=== PATIENT | male | born 1995 | race Caucasian/White ===

== ENCOUNTER 2017-02-05 09:01 | Emergency (ER) | payer OTHER ==
[~2017-02-05] VITALS: Ht 188 cm; Wt 74.0 kg
[~2017-02-05 09:01] MED LIST: HMLI SC; INSDGI SC
[2017-02-05 09:12] VITALS: Ht 188 cm; Wt 74.0 kg
[2017-02-05 09:28] VITALS: O2SAT 98
[2017-02-05] MEDS ORDERED: INSDGIPEN SQ (09:30)
[2017-02-05] MEDS ORDERED: INSU100I2 SQ (09:30)
[2017-02-05] MEDS ORDERED: MECLIZINE HCL 25 MG TAB PO STA (09:42)
[2017-02-05] MEDS ORDERED: SODIUM CHLORIDE 0.9% 1000ML 1,000 ML IV STA (09:42)
[2017-02-05 09:54] LABS: BASO % 1.5 %; BASO ABS # 0.08 K/uL (0-0.2); COMPLETE YES; EOS % 2.9 %; HEMATOCRIT 43.9 % (42-52); IG% 0.2 %; LYMPH % 36.2 %; MEAN CELL VOLUME 89.2 fL (80-100); MEAN CORPUSCULAR HEMOGLOBIN 30.1 pg (25-34); MEAN CORPUSCULAR HGB CONC 33.7 g/dl (32-36); MEAN PLATELET VOLUME 9.7 fL (7.4-10.4); NEUT % 48.2 %; PLATELET COUNT 263 K/uL (130-400); RED BLOOD COUNT 4.92 M/uL (4.7-6.1); WHITE BLOOD COUNT 5.25 K/uL (4.8-10.8)
[2017-02-05 10:01] LABS: BUN/CREATININE RATIO 13.5 (10-20); CALCIUM 8.5 mg/dl (8.5-10.1); CREATININE 0.83 mg/dl (0.60-1.40); POTASSIUM 3.7 mmol/L (3.5-5.1)
--- NOTE | 2017-02-05 11:35 | DIAGNOSTIC IMAGING REPORT ---
ORBITS FOR MRI HISTORY: 21 years-old Male R/O FOREIGN BODY FOR MRI history of metal removal from both eyes. Clearance for MRI. COMPARISON: None available TECHNIQUE: 3 views of the orbits FINDINGS: No opaque foreign body identified. No acute fracture or dislocation. Paranasal sinuses are generally clear. IMPRESSION: No opaque foreign body or fracture. The above report was generated using voice recognition software. It may contain grammatical, syntax or spelling errors. Electronically signed by: Jose Angel Mcginnis M.D. 02/05/2017 11:34 AM Dictated Date/Time: 02/05/2017 11:33 AM
--- NOTE | 2017-02-05 13:02 | DIAGNOSTIC IMAGING REPORT ---
NECK MRA HISTORY: Vertigo. eval for vertebral artery dissection TECHNIQUE: Ocky-io-okmbyy and gadolinium-enhanced MRA of the neck was performed both before and after the intravenous administration of contrast. All measurements were calculated based on NASCET criteria. COMPARISON STUDY: None. FINDINGS: The aortic arch and proximal great vessels are widely patent. There is no significant stenosis, occlusion, or dissection identified within the bilateral common carotid, internal carotid, or vertebral arteries. IMPRESSION: No significant stenosis, occlusion, or dissection identified within the carotid or vertebral arteries. Electronically signed by: Mega Flaherty M.D. 02/05/2017 1:01 PM Dictated Date/Time: 02/05/2017 12:57 PM
--- NOTE | 2017-02-05 13:09 | DIAGNOSTIC IMAGING REPORT ---
MRI OF THE BRAIN WITHOUT AND WITH IV CONTRAST CLINICAL HISTORY: Vertigo. Ataxia. COMPARISON STUDY: No previous studies for comparison. TECHNIQUE: Utilizing a 1.5 Ellie magnet and dedicated coil, multiplanar, multiecho imaging of the brain was performed pre and postcontrast administration. IV administration of 7.4 mL of Gadavist contrast was uneventful. FINDINGS: There are no areas of restricted diffusion to suggest acute infarct. No acute intracranial hemorrhage, midline shift or mass effect is present. Brain volume is normal. Ventricular system is normal. Basilar cisterns are patent. There are no extra-axial collections. Flow-voids for the major intracranial vessels are present. There is no intracranial mass or pathologic enhancement. Note is made of multiple small white matter T2 hyperintense supratentorial foci, predominantly subcortical distribution. The largest is a 1 cm left frontal lobe subcortical focus shown on coronal FLAIR image 15 of 28. These are nonspecific. No associated parenchymal enhancement is present. Calvarial signal is normal. Orbits and sinuses are unremarkable. IMPRESSION: 1. No evidence of acute infarction. No acute intracranial hemorrhage. 2. Multiple small white matter T2 hyperintense foci, predominantly subcortical in distribution without associated enhancement. These foci are nonspecific and of uncertain clinical significance. Differential considerations include a demyelinating process, possibly remote. The appearance is not typical for multiple sclerosis although this is within the differential. In addition, Lyme disease, ADEM and vasculitis could have this appearance. Given the clinical history, these findings may be incidental. No infratentorial foci. Electronically signed by: Abdiel Mcintosh M.D. 02/05/2017 1:07 PM Dictated Date/Time: 02/05/2017 12:57 PM
[2017-02-05] MEDS ORDERED: MECL1TAB42 PO (13:21)
[2017-02-05 13:50] VITALS: BP 111/63; PULSE 62; TEMP 36.5; O2SAT 100
--- NOTE | 2017-02-05 17:50 | EMERGENCY ROOM VISIT NOTE ---
History Report prepared by Tanisha: Ninoska Hagen Under the Supervision of: Dr. Tex Oliveira M.D. First contact with patient: 09:33 Chief Complaint: VERTIGO Stated Complaint: VERTIGO Nursing Triage Summary: pt reports I had vertigo befor feels like I have it again, pt reports sx started at 0830 this am. has hx of vertigo has not had for a couple years, had med that in jun took for the vertigo started to feel better then started to vomit. pt reports sx worsens when changing positions History of Present Illness The patient is a 21 year old male who presents to the Emergency Room with complaints of constant vertigo for the past hour. His symptoms started around 8: 30am today. The patient is experiencing dizziness that is worse with opening his eyes and movement. He has a slight left-sided headache. The patient notes nausea and vomiting. He has a history of vertigo in 2014 and was treated with meclizine. His symptoms resolved after a few days. The patient states that this feels exactly like his previous vertigo. He denies fever, numbness, weakness, ringing in his ears, hearing loss, and trouble with his speech or swallowing. He took an meclizine [employer] but vomited it up. 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 Review of Systems See HPI for pertinent positives & negatives. A total of 10 systems reviewed and were otherwise negative. Past Medical & Surgical Medical Problems: (1) Diabetes mellitus type 1 Family History Patient reports no known family medical history. Social History Smoking Status: Never Smoker Alcohol Use: none Drug Use: none Marital Status: single Housing Status: lives with family Occupation Status: student Current/Historical Medications Scheduled Insulin Glargine (Lantus Solostar), 34 UNITS SQ HS Insulin Lispro (Human) (Humalog Kwikpen), 1 DOSE SQ WM Scheduled PRN Meclizine Hcl (Meclizine Hcl), 1 TAB PO Q8 PRN for vertigo Allergies Coded Allergies: No Known Allergies (Unverified , 02/05/17) Physical Exam Vital Signs Date Time Temp Pulse Resp B/P (MAP) Pulse Ox O2 Delivery O2 Flow Rate FiO2 02/05/17 13:50 36.5 62 18 111/63 100 02/05/17 12:50 60 18 110/76 100 Room Air 02/05/17 11:16 58 18 129/70 100 Room Air 02/05/17 09:47 73 18 115/72 100 Room Air 02/05/17 09:28 98 Room Air 02/05/17 09:19 63 02/05/17 09:12 36.5 81 18 124/77 99 Room Air Physical Exam Constitutional: Vital signs reviewed. Eyes: Pupils are equal round reactive to light. Conjunctiva are noninjected. ENT: Pharynx is clear without erythema or exudate. Mucous membranes are moist. Neck supple without meningeal signs. Respiratory: Clear to auscultation bilaterally. Breath sounds are equal bilaterally. Cardiovascular: Regular rate and rhythm. No rubs or gallops. GI: Soft, nondistended and nontender. Bowel sounds are present. Musculoskeletal: No peripheral edema. No lower extremity tenderness. Integumentary: No cyanosis. Neurological: The patient is awake and alert. Cranial nerves II-XII are intact. Motor is 5 out of 5 all extremities. Sensation is intact to light touch all extremities. Normal speech. No pronator drift. No limb ataxia. No dysdiadochokinesis, negative test of skew, positive head impulse testing. left lateral nystagmus, no vertical or rotatory nystagmus. Psychiatric: Normal affect. Medical Decision & Procedures ER Provider Diagnostic Interpretation: Radiology results as stated below per my review and the radiologist's interpretation: NECK MRA HISTORY: Vertigo. eval for vertebral artery dissection TECHNIQUE: [id number] and gadolinium-enhanced MRA of the neck was performed both before and after the intravenous administration of contrast. All measurements were calculated based on NASCET criteria. COMPARISON STUDY: None. FINDINGS: The aortic arch and proximal great vessels are widely patent. There is no significant stenosis, occlusion, or dissection identified within the bilateral common carotid, internal carotid, or vertebral arteries. IMPRESSION: No significant stenosis, occlusion, or dissection identified within the carotid or vertebral arteries. Electronically signed by: Mega Flaherty M.D. 02/05/2017 1:01 PM Dictated Date/Time: 02/05/2017 12:57 PM MRI OF THE BRAIN WITHOUT AND WITH IV CONTRAST CLINICAL HISTORY: Vertigo. Ataxia. COMPARISON STUDY: No previous studies for comparison. TECHNIQUE: Utilizing a 1.5 Ellie magnet and dedicated coil, multiplanar, multiecho imaging of the brain was performed pre and postcontrast administration. IV administration of 7.4 mL of Gadavist contrast was uneventful. FINDINGS: There are no areas of restricted diffusion to suggest acute infarct. No acute intracranial hemorrhage, midline shift or mass effect is present. Brain volume is normal. Ventricular system is normal. Basilar cisterns are patent. There are no extra-axial collections. Flow-voids for the major intracranial vessels are present. There is no intracranial mass or pathologic enhancement. Note is made of multiple small white matter T2 hyperintense supratentorial foci, predominantly subcortical distribution. The largest is a 1 cm left frontal lobe subcortical focus shown on coronal FLAIR image 15 of 28. These are nonspecific. No associated parenchymal enhancement is present. Calvarial signal is normal. Orbits and sinuses are unremarkable. IMPRESSION: 1. No evidence of acute infarction. No acute intracranial hemorrhage. 2. Multiple small white matter T2 hyperintense foci, predominantly subcortical in distribution without associated enhancement. These foci are nonspecific and of uncertain clinical significance. Differential considerations include a demyelinating process, possibly remote. The appearance is not typical for multiple sclerosis although this is within the differential. In addition, Lyme disease, ADEM and vasculitis could have this appearance. Given the clinical history, these findings may be incidental. No infratentorial foci. Electronically signed by: Abdiel Mcintosh M.D. 02/05/2017 1:07 PM Dictated Date/Time: 02/05/2017 12:57 PM ORBITS FOR MRI HISTORY: 21 years-old Male R/O FOREIGN BODY FOR MRI history of metal removal from both eyes. Clearance for MRI. COMPARISON: None available TECHNIQUE: 3 views of the orbits FINDINGS: No opaque foreign body identified. No acute fracture or dislocation. Paranasal sinuses are generally clear. IMPRESSION: No opaque foreign body or fracture. The above report was generated using voice recognition software. It may contain grammatical, syntax or spelling errors. Electronically signed by: Jose Angel Mcginnis M.D. 02/05/2017 11:34 AM Dictated Date/Time: 02/05/2017 11:33 AM Laboratory Results 02/05/17 09:20 Red Blood Count 4.92, Mean Corpuscular Volume 89.2, Mean Corpuscular Hemoglobin 30.1, Mean Corpuscular Hemoglobin Concent 33.7, Mean Platelet Volume 9.7, Neutrophils (%) (Auto) 48.2, Lymphocytes (%) (Auto) 36.2, Monocytes (%) (Auto) 11.0, Eosinophils (%) (Auto) 2.9, Basophils (%) (Auto) 1.5, Neutrophils # (Auto ) 2.53, Lymphocytes # (Auto) 1.90, Monocytes # (Auto) 0.58, Eosinophils # (Auto ) 0.15, Basophils # (Auto) 0.08 02/05/17 09:20 Test 02/05/17 09:20 02/05/17 11:19 White Blood Count 5.25 K/uL (4.8-10.8) Red Blood Count 4.92 M/uL (4.7-6.1) Hemoglobin 14.8 g/dL (14.0-18.0) Hematocrit 43.9 % (42-52) Mean Corpuscular Volume 89.2 fL (80-100) Mean Corpuscular Hemoglobin 30.1 pg (25-34) Mean Corpuscular Hemoglobin Concent 33.7 g/dl (32-36) Platelet Count 263 K/uL (130-400) Mean Platelet Volume 9.7 fL (7.4-10.4) Neutrophils (%) (Auto) 48.2 % Lymphocytes (%) (Auto) 36.2 % Monocytes (%) (Auto) 11.0 % Eosinophils (%) (Auto) 2.9 % Basophils (%) (Auto) 1.5 % Neutrophils # (Auto) 2.53 K/uL (1.4-6.5) Lymphocytes # (Auto) 1.90 K/uL (1.2-3.4) Monocytes # (Auto) 0.58 K/uL (0.11-0.59) Eosinophils # (Auto) 0.15 K/uL (0-0.5) Basophils # (Auto) 0.08 K/uL (0-0.2) RDW Standard Deviation 39.5 fL (36.4-46.3) RDW Coefficient of Variation 12.3 % (11.5-14.5) Immature Granulocyte % (Auto) 0.2 % Immature Granulocyte # (Auto) 0.01 K/uL (0.00-0.02) Anion Gap 4.0 mmol/L (3-11) Est Creatinine Clear Calc Drug Dose 149.8 ml/min Estimated GFR () 147.8 Estimated GFR (Non- 127.6 BUN/Creatinine Ratio 13.5 (10-20) Calcium Level 8.5 mg/dl (8.5-10.1) Bedside Glucose 177 mg/dl (70-99) Laboratory results as reviewed by me. Medications Administered Medications (Trade) Dose Ordered Sig/Tripp Route Start Time Stop Time Status Last Admin Dose Admin Meclizine HCl (Antivert Tab) 25 mg NOW STAT PO 02/05/17 09:42 02/05/17 09:43 DC 02/05/17 09:46 25 MG Sodium Chloride 1,000 ml @ 999 mls/hr Q1H1M STAT IV 02/05/17 09:42 02/05/17 10:42 DC 02/05/17 09:45 999 MLS/HR ED Course 0933: The patient was evaluated in room A10. A complete history and physical exam was performed. 0942: NSS 1000 ml @ 999 mls/hr IV, Meclizine HCl 25 mg PO 1043: I reevaluated the patient at this time. His vertigo is virtually gone and his nystagmus has improved, but he had significant difficulty walking despite his lack of vertigo. We will proceed with an MRI. 1319: I reassessed the patient at this time. He is feeling better and resting comfortably. I discussed the results and treatment plan with patient and his mother. I answered all pertaining questions that they had. They expressed understanding and verbalized agreement. The patient will be discharged home. Medical Decision This is a 21-year-old male who presents with vertigo. Differential diagnosis includes benign positional vertigo, labyrinthitis, Mnire's disease, intracranial mass, intracranial hemorrhage. I did perform a limited focused review of portions of the patient's old chart on the electronic medical record. The patient was seen for vertigo in 2014 and treated with meclizine. I did evaluate the patient as noted above. He is presenting with sudden onset of vertigo. His symptoms seem to be peripheral based on his examination. He had a negative test of skew and positive head and pulse testing. He has lateral nystagmus without rotatory or vertical nystagmus. IV access was established. I did treat the patient with normal saline IV. He was also given meclizine 25 mg. The patient was placed on a continuous administration internship. I did order and review the patient's blood work as noted in the electronic medical record. He has mild hyperglycemia. He is diabetic. I did reassess the patient. He states he is feeling much better. His vertigo is significantly improved and his nystagmus is also improved. I did try to ambulate the patient but he was extremely unsteady despite not having vertigo. I did explain that this could be simply from the medication but given the symptoms I did decide to work him up further. I did order an MRA of the neck and MRI combo of the brain. I did review the images myself as well as the radiology report as described above. The MRI and MRA were unremarkable. I did reassess the patient. He feels well at this time. I did discuss the test results with him and his mother. He was discharged in good condition and given return instructions as outlined below. Medication Reconcilliation Current Medication List: was personally reviewed by me Blood Pressure Screening Patient's blood pressure: Elevated blood pressure Blood pressure disposition: Elevated BP felt to be situational Impression Primary Impression: Vertigo Additional Impression: Hyperglycemia Scribe Attestation The scribe's documentation has been prepared under my direct and personally reviewed by me in its entirety. I confirm that the note above accurately reflects all work, treatment, procedures, and medical decision making performed by me. Departure Information Dispostion Home / Self-Care Prescriptions Meclizine Hcl (MECLIZINE HCL) 25 Mg Tab 1 TAB PO Q8 Y for vertigo, #20 TAB Prov: Tex Oliveira M.D. 02/05/17 Referrals No Doctor, Assigned (PCP) Forms HOME CARE DOCUMENTATION FORM, IMPORTANT VISIT INFORMATION, WORK / SCHOOL INSTRUCTIONS Patient Instructions ED BPV Vertigo, My [facility] Additional Instructions You have been examined and treated today on an emergency basis only. This is not a substitute for, or an effort to provide, complete comprehensive medical care. It is impossible to recognize and treat all injuries or illnesses in a single emergency department visit. It is therefore important that you follow up closely with your physician. Call as soon as possible for an appointment. Talk to your doctor about your MRI results. Return for worsening symptoms or if you develop fever, vomiting, numbness or weakness on one side of your body, difficulty with your speech or swallowing, or any other concerning symptoms. Problem Qualifiers
== END 2017-02-05 13:45 | disposition home or self-care (01) ==
LOC: C.EDB 09:02 → C.EDA 13:45
DX: R42 Dizziness and giddiness (principal); R73.9 Hyperglycemia, unspecified; R27.0 Ataxia, unspecified

== ENCOUNTER 2021-03-04 19:28 | Inpatient (IN) ==
[2021-03-04] MEDS ORDERED: ceFAZolin 2000MG 2,000 MG/15 ML SYR IV STA (19:36)
[2021-03-04] MEDS ORDERED: HYDROmorphone INJ 0.5 MG/0.5 ML SYR IV STA ×2 (19:37→20:07)
[2021-03-04] MEDS ORDERED: ONDANSETRON INJ 2 MG/ML 2 ML VIAL IV STA (19:37)
[2021-03-04] MEDS ORDERED: SODIUM CHLORIDE 0.9% 1000ML 1,000 ML IV SCH (19:45)
[2021-03-04 19:56] LABS: Basophils # (auto) 0.05 K/uL (0-0.2); Basophils % (auto) 0.3 %; Eosinophils # (auto) 0.07 K/uL (0-0.5); Eosinophils % (auto) 0.4 %; Hematocrit (blood only) 43.6 % (42-52); Immature Granulocytes # (auto) 0.04 K/uL (0.00-0.02); Immature Granulocytes % (auto) 0.2 %; Lymphocytes # (auto) 1.89 K/uL (1.2-3.4); Lymphocytes % (auto) 10.7 %; Mean Corpuscular Hemoglobin 31.8 pg (25-34); Mean Corpuscular Hgb Conc 34.4 g/dL (32-36); Mean Corpuscular Volume 92.4 fL (80-100); Mean Platelet Volume 9.3 fL (7.4-10.4); Monocytes # (auto) 1.32 K/uL (0.11-0.59); Monocytes % (auto) 7.5 %; Neutrophils # (auto) 14.26 K/uL (1.4-6.5); Neutrophils % (auto) 80.9 %; Platelet Count 307 K/uL (130-400); RDW Coefficient of Variation 12.2 % (11.5-14.5); RDW Standard Deviation 41.4 fL (36.4-46.3); Red Blood Count 4.72 M/uL (4.7-6.1); White Blood Count 17.63 K/uL (4.8-10.8)
--- NOTE | 2021-03-04 20:11 | XRay Report ---
XR tibia fibula RT 2V CLINICAL HISTORY: trauma Comparison: None available at the time of this dictation. TECHNIQUE: 2 radiographic views of the right leg were obtained. FINDINGS: There is a spiral fracture of the distal tibial diaphysis and a comminuted fracture of the fibular di aphysis. There is apex anterior angulation. Visualized portions of the knee and ankle joint are unrem arkable. Soft tissue swelling seen about the fracture site. IMPRESSION: Displaced fractures of the tibia and fibula with associated soft tissue swelling.. ACT 112: Negative or not required by law. Electronically signed by: Devan Ruano M.D. 03/04/2021 8:10 PM
[2021-03-04 20:12] LABS: Albumin Level 3.7 gm/dl (3.4-5.0); BUN Creatinine Ratio 12.4 (10-20); Calcium 9.2 mg/dl (8.5-10.1); Creatinine Clr Calc Pharmacy 124.8 ml/min; Est GFR (African American) 116.7 ml/min; Est GFR (Non-African American) 100.7 ml/min; Potassium 3.7 mmol/L (3.5-5.1)
[2021-03-04] MEDS ORDERED: metroNIDAZOLE 500 MG/100 ML BAG IV STA (20:12)
--- NOTE | 2021-03-04 20:14 | XRay Report ---
RIGHT FOOT 2 VIEWS HISTORY: Right foot pain. trauma COMPARISON: None. FINDINGS: There is no fracture or dislocation. Soft tissues are unremarkable. No radiopaque foreign b odies. IMPRESSION: No fractures within the right foot. ACT 112: Negative or not required by law. Electronically signed by: Mega Flaherty M.D. 03/04/2021 8:13 PM
[2021-03-04 20:15] LABS: Bilirubin,Total 0.4 mg/dl (0.2-1); Globulin 3.7 gm/dl (2.5-4.0); Total Protein 7.4 gm/dl (6.4-8.2)
--- NOTE | 2021-03-04 20:16 | XRay Report ---
XR chest 1V portable HISTORY: trauma COMPARISON: None. FINDINGS: The lungs are clear. Cardiac silhouette is normal in size. No pleural effusions. No pneumot horax. Mild dextroscoliosis of the thoracic spine. IMPRESSION: No acute process. ACT 112: Negative or not required by law. Electronically signed by: Mega Flaherty M.D. 03/04/2021 8:15 PM
--- NOTE | 2021-03-04 20:25 | XRay Report ---
XR tibia fibula RT 2V CLINICAL HISTORY: post reduction Comparison: Comparison is made to tibia-fibula radiographs 03/04/2021 TECHNIQUE: 2 radiographic views of the right leg were obtained. FINDINGS: The leg is been placed in a cast limiting fine bony detail. There is interval partial reduction of th e tibial and fibular fractures with remaining apex anterior angulation and less than one shaft width displacement. Joint spaces are well-preserved. Soft tissue swelling is seen about the leg. IMPRESSION: Interval casting with residual mild displacement and angulation of the tibial and fibular fractures. ACT 112: Negative or not required by law. Electronically signed by: Devan Ruano M.D. 03/04/2021 8:23 PM
[2021-03-04] MEDS: HYDROmorphone INJ 0.5 MG/0.5 ML SYR IV PRN (21:08)
[2021-03-04 21:10] LABS: Appearance Urine Clear (Clear); Bilirubin Urine Negative (Negative); Blood Urine Negative (Negative); Color Urine Yellow; Glucose Urine UA 2+ (Negative); Ketones Urine Trace (Negative); Leukocyte Esterase Urine Negative (Negative); Nitrite Urine Negative (Negative); Protein Urine Negative (Negative); Specific Gravity Urine 1.013 (1.000-1.030); Urobilinogen Urine Negative (Negative); pH Urine 5.5 (4.5-7.5)
--- NOTE | 2021-03-04 21:17 | History & Physical Report ---
Date of Service March 04, 2021 Assessment & Plan (1) Open tibial fracture: Patient is received IV antibiotics in the ER. He has been splinted in a splint. Or can take emergent to the operating room doing irrigation debridement and then followed this by an IM nailing of his tibia fracture. The risks about this procedure explained the patient in depth include but not limited to DVT PE infection neurological injury vascular bleeding problems nonunion malunion infection compartment syndrome etc. The patient understands and desires to proceed informed consent is obtained. I did tell him with his diabetes his risk of infection is increased but will be the best we can to avoid that. We will probably keep 24 hours afterwards for IV antibiotics. Also monitor his compartments over time. Begin DVT prophylaxis include teds SCDs and baby aspirin twice a day. History of Present Illness Chief Complaint: . Right leg injury. Primary Care Provider: Nancy Terrazas DO . Patient is a 25-year-old wood who sustained injury to his right leg earlier today. He was apparently stacking tires up on a shelf when the tires fell back and landed on his right leg. Acute onset of pain and deformity. He was brought to emergency room where x-rays revealed a open wound and a tib-fib fracture. Were consulted for evaluation. No other injuries. No pre-existing pain in this leg. Last ate at about 5:00. He was given Ancef in the ER along with some Flagyl. He is a type I diabetic and on insulin. Allergies Allergy/AdvReac Type Severity Reaction Status Date / Time No Known Allergies Allergy Unverified 03/04/21 20:23 Home Medications Medication Instructions Recorded Confirmed Type insulin aspart U-100 100 unit/mL 0 unit SUBCUT ACHS 03/04/21 03/04/21 History (3 mL) subcutaneous pen (Novolog Flexpen U-100 Insulin aspart) insulin glargine 100 unit/mL (3 33 unit SUBCUT DAILY 03/04/21 03/04/21 History mL) subcutaneous pen (Basaglar KwikPen U-100 Insulin) Past Med/Surg History Medical History (Updated 03/04/21 @ 21:16 by Jarod Ramirez MD) Open tibial fracture Social History Smoking Status: Never smoker Tobacco Type: Smokeless Tobacco (Dip or Chew) Feels Safe at Home: Yes Review of Systems All systems reviewed & are unremarkable except as noted in HPI & below. Physical Exam . Physical examination is a pleasant healthy 25-year-old male who looks to be in good health. HEENT exam is benign. Neck supple no lymphadenopathy lungs clear auscultation. Heart has a regular rate and rhythm. Abdomen soft nontender nondistended extremities grossly neuro vas intact up as follows. Examination of the right leg reveals the splint to be in place. There is some slight deformity to his leg with the apex anterior and medial apex angulation. He can flex extend his toes slightly. He is got brisk refill. Results & Data Results & Data Laboratory Results . Diagnostic Findings . X-rays of the right tib-fib reveal a mid to distal third tibia fracture oblique in fashion with a fairly comminuted fibula fracture. Marked displacement. PG Care Time/CCT Total # of Minutes Spent Total Time Spent with Patient: Total time spent is greater than 50% in coordination of care (as documented) at patient's floor/unit and/or counseling patient: Coding Level of Care Code 00165 Initial Inpt Care Lvl 3 Diagnoses Open tibial fracture S82.209B
[2021-03-04] MEDS ORDERED: EPINEPHrine INJ 1 MG/ML AMP ONE (21:30)
[2021-03-04] MEDS ORDERED: VANCOMYCIN HCL 1000MG/20ML VIAL ONE (21:31)
[2021-03-04] MEDS ORDERED: ePHEDrine sulfate 50 MG/ML AMP IV PRN (21:56)
[2021-03-04] MEDS ORDERED: ATROPINE SULFATE 0.1 MG/ML 10ML SYR IV PRN (21:56)
[2021-03-04] MEDS ORDERED: ONDANSETRON INJ 2 MG/ML 2 ML VIAL IV PRN (21:56)
--- NOTE | 2021-03-04 21:56 | Anesthesiology Consultation ---
Date of Service March 04, 2021 Assessment & Plan Chart Review Chart Review: Acceptable Risk for Surgery and Patient NOT seen in Pre Admission Testing Consults Requested none ASA ASA2E Proposed Anesthesia Anesthesia Type: General Risk / Benefits Reviewed With: PT / POA / Parent / Guardian, Accepts Plan and Informed Consent Obtained History Surgery Operation Date: 03/04/21 21:00 Proposed Procedures p Intramedullary Nail Tibia(Right) - Jarod Ramirez MD Height/Weight Height: 6 ft 1 in Weight: 84 kg Allergies Allergy/AdvReac Type Severity Reaction Status Date / Time No Known Allergies Allergy Unverified 03/04/21 20:23 Medications Home Medications Medication Instructions Recorded Confirmed Last Taken insulin aspart U-100 100 unit/mL 0 unit SUBCUT ACHS 03/04/21 03/04/21 Unknown (3 mL) subcutaneous pen (Novolog Flexpen U-100 Insulin aspart) insulin glargine 100 unit/mL (3 33 unit SUBCUT DAILY 03/04/21 03/04/21 Unknown mL) subcutaneous pen (Basaglar KwikPen U-100 Insulin) Active Medications Generic Name Dose Route Start Last Admin Trade Name Freq PRN Reason Stop Dose Admin Hydromorphone HCl 0.5 mg 03/04/21 21:04 03/04/21 21:08 Hydromorphone Inj 0.5 Mg/0.5 Ml Syr IV 03/18/21 21:03 0.5 mg Q30M PRN Administration Pain NPO Date Last Intake of Fluids: 03/04/21 Time Last Intake of Fluids: 17:00 Last Intake of Fluids Comment: water Date Last Intake of Solids: 03/04/21 Time Last Intake of Solids: 17:00 Last Intake of Solids Comment: sandwich Past Medical History Medical History (Updated 03/04/21 @ 21:16 by Jarod Ramirez MD) Open tibial fracture Exercise / Class Metabolic Activity II 4-5 Yardwork/Stairs/Walk up hill Past Anesthesia History No Hx of Anesthesia Complications and No Family Hx of Anesthesia Complications History of PONV No Hx of PONV and No Hx of Motion Sickness Social History Smoking Status: Never smoker Physical Exam Vital Signs Last Vital Signs Temp 36.8 C 03/04/21 19:30 Pulse 106 H 03/04/21 21:30 Resp 19 03/04/21 21:30 BP 147/87 H 03/04/21 21:30 Pulse Ox 96 03/04/21 21:30 ENMT Mouth: no dentition abnormality Thyromental Distance: > or= 3.5 Finger Breadths Mallampati Class: II Neck normal visual inspection Respiratory normal respiratory effort Auscultation: lungs clear to auscultation bilaterally Cardiovascular Rate/Rhythm: regular rate and regular rhythm Psychiatric Orientation: alert Testing Laboratory Results 03/04/21 19:48 03/04/21 19:46 Urine Color Yellow 03/04/21 20:56 Urine Appearance Clear (Clear) 03/04/21 20:56 Urine pH 5.5 (4.5-7.5) 03/04/21 20:56 Ur Specific [place] 1.013 (1.000-1.030) 03/04/21 20:56 Urine Protein Negative (Negative) 03/04/21 20:56 Urine Glucose (UA) 2+ (Negative) H 03/04/21 20:56 Urine Ketones Trace (Negative) H 03/04/21 20:56 Urine Nitrite Negative (Negative) 03/04/21 20:56 Ur Leukocyte Esterase Negative (Negative) 03/04/21 20:56 Blood Type B Positive 03/04/21 19:46 Antibody Screen NEGATIVE 03/04/21 19:46
[2021-03-04] MEDS ORDERED: fentaNYL citrate 100 MCG/2 ML VIAL ONE ×2 (22:03)
[2021-03-04] MEDS ORDERED: GENTAMICIN SULFATE 40 MG/ML 2 ML VIAL ONE (22:15)
[2021-03-04] MEDS ORDERED: MoRPHine SULFATE PF 1 MG/ML 10 ML AMP/VIAL ONE (22:22)
--- NOTE | 2021-03-05 00:11 | Emergency Department Note ---
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 Patient was landing on a pallet with the distal aspect of his right foot when he essentially lost his footing. Somehow he fell over the tires and leverage the leg. Patient did have long jeans on and work boots. He is a known type I diabetic and states he is fairly well controlled. He denies any previous injury to this leg. He denies any other traumatic injuries from the fall such as head injury, chest pain, abdominal pain. He does not take any blood thinners. REVIEW OF SYSTEMS: A review of systems was performed with positives and pertinent negatives listed in the history of present illness. 10 systems were reviewed and are otherwise negative. ALLERGIES: see below MEDICATIONS: see below PMH: see below SOCIAL HISTORY: see below DDx: Fracture, subluxation, dislocation, contusion, ligamentous injury, neurovascular, compartment syndrome, rhabdomyolysis, as well as other patho logies. PHYSICAL EXAM: Vital signs reviewed. General: Well-appearing 25-year-old male in symptoms comfort. HEENT: No scleral icterus, PERRLA, neck supple. Atraumatic. Cardiovascular: Regular rate and rhythm, no extra sounds. Pulmonary: Clear to auscultation bilaterally, normal work of breathing. Abdomen: Soft, nontender, nondistended, positive bowel sounds. Musculoskeletal: Atraumatic, no peripheral edema. Neurologic: Patient awake alert and oriented x 3, speech is clear Skin: Warm, dry, no rash EMERGENCY DEPARTMENT COURSE/MDM: This patient was evaluated and appeared to be in no significant distress. IV access was obtained and laboratory work was drawn. 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 Patient was hydrated with normal saline solution, given IV Dilaudid and Zofran for his discomfort. Patient's laboratory work reveals a leukocytosis which is likely stress mediated. The wound appears to be open although relatively clean as he did have long jeans on prior to the incident. Patient's wound was cleansed and dressed, Xeroform antibiotic impregnated gauze was placed over the opening. The fracture was reduced as it was slightly piercing the skin and the patient stated his toes were becoming numb. He was neurovascularly intact however on multiple exams. X-rays confirm a distal 2/3 tib-fib fracture. Patient was given 2 g of IV Ancef, 500 mg of IV Flagyl. He states his tetanus vaccine is up-to-date. Additional x-rays were obtained and are read as as below. Dr. Ramirez of orthopedics was consulted and will evaluate the patient for definitive management. Both the patient, his girlfriend and his mother at the bedside are aware of the plan and agreed. PROCEDURE: Right tib-fib fracture/deformity reduction Indication: Open wound with angulation and vascular/cutaneous compromise Verbal consent obtained. Risks and benefits were explained with the usual customary discussion. A time out was taken. Neurovascular examination before the procedure and was intact, although patient stated he was becoming tingling in the toes. The wound was cleansed with saline and Xeroform antibiotic impregnated gauze was applied over the open area. Kerlix was wrapped gently. The fracture was exaggerated and reduced without difficulty. This resulted in an easy reduction without complication. A sugar tong and posterior splint was applied under my direction/assist Neurovascular examination after the procedure was intact. The patient had significant pain relief and tolerated the procedure well. MONITORING: An order for cardiac monitoring was placed and the patient is noted to be in a NSR at 90 beats per minute. RADIOLOGY: See below I have personally spent 32 minutes of critical care time in the direct managemen t of this patient. This was a life/limb threatening event. This 32 minutes is in excess of all separately billable procedures. DISPOSITION: OR with orthopedics Past Med/Surg History Medical History (Updated 03/05/21 @ 00:11 by Vera Real MD) Open tibial fracture Social History Smoking Status: Never smoker Tobacco Type: Smokeless Tobacco (Dip or Chew) Feels Safe at Home: Yes Allergies Allergies Allergy/AdvReac Type Severity Reaction Status Date / Time No Known Allergies Allergy Unverified 03/04/21 20:23 Home Meds Home Medications Medication Instructions Recorded Confirmed insulin aspart U-100 100 unit/mL 0 unit SUBCUT ACHS 03/04/21 03/04/21 (3 mL) subcutaneous pen (Novolog Flexpen U-100 Insulin aspart) insulin glargine 100 unit/mL (3 33 unit SUBCUT DAILY 03/04/21 03/04/21 mL) subcutaneous pen (Basaglar KwikPen U-100 Insulin) Results & Data (ED) Vital Signs Vital Signs - 24 hr 03/04/21 19:30 03/04/21 19:39 03/04/21 20:00 Temperature 36.8 C Temperature Source Oral Pulse Rate 93 H 90 89 Pulse Rate from SpO2 Sensor 91 H 89 Respiratory Rate 20 20 17 Respiratory Effort / Characteristics Non-Labored Spontaneous Respiratory Depth Normal Blood Pressure 134/90 156/77 H Blood Pressure Mean 104 103 Pulse Oximetry 97 98 95 Oxygen Delivery Method Room Air Sepsis Recent Fever Within 48 Hours No Sepsis New/Unexplained Change in Mental Status No Sepsis Action Taken by Nursing No Action Required 03/04/21 20:30 03/04/21 21:00 03/04/21 21:30 Temperature Temperature Source Pulse Rate 94 H 100 H 106 H Pulse Rate from SpO2 Sensor 92 H 98 H 104 H Respiratory Rate 18 14 19 Respiratory Effort / Characteristics Respiratory Depth Blood Pressure 147/82 H 134/57 L 147/87 H Blood Pressure Mean 103 82 107 Pulse Oximetry 97 97 96 Oxygen Delivery Method Sepsis Recent Fever Within 48 Hours Sepsis New/Unexplained Change in Mental Status Sepsis Action Taken by Skilled Nursing Medications Current Medication List: was personally reviewed by me Laboratory Data Attestation: I reviewed the patient's lab results. Result diagrams: 03/04/21 19:48 03/04/21 19:46 Lab Results 03/04/21 03/04/21 03/04/21 Range/Units 19:46 19:46 19:48 WBC 17.63 H (4.8-10.8) K/uL RBC 4.72 (4.7-6.1) M/uL Hgb 15.0 (14.0-18.0) g/dL Hct 43.6 (42-52) % MCV 92.4 (80-100) fL MCH 31.8 (25-34) pg MCHC 34.4 (32-36) g/dL RDW Std Deviation 41.4 (36.4-46.3) fL RDW Coeff of Monae 12.2 (11.5-14.5) % Plt Count 307 (130-400) K/uL MPV 9.3 (7.4-10.4) fL Immature Gran % (Auto) 0.2 % Neut % (Auto) 80.9 % Lymph % (Auto) 10.7 % [place] % (Auto) 7.5 % Eos % (Auto) 0.4 % Baso % (Auto) 0.3 % Neut # (Auto) 14.26 H (1.4-6.5) K/uL Lymph # (Auto) 1.89 (1.2-3.4) K/uL [place] # (Auto) 1.32 H (0.11-0.59) K/uL Eos # (Auto) 0.07 (0-0.5) K/uL Baso # (Auto) 0.05 (0-0.2) K/uL Immature Gran # (Auto) 0.04 H (0.00-0.02) K/uL Sodium 138 (136-145) mmol/L Potassium 3.7 (3.5-5.1) mmol/L Chloride 102 (98-107) mmol/L Carbon Dioxide 26 (21-32) mmol/L Anion Gap 10.0 (3-11) BUN 13 (7-18) mg/dl Creatinine 1.04 (0.6-1.4) mg/dl Est Cr Clr Drug Dosing 124.8 ml/min Est GFR ( Amer) 116.7 ml/min Est GFR (Non-Af Amer) 100.7 ml/min BUN/Creatinine Ratio 12.4 (10-20) Glucose 208 H (70-99) mg/dl Calcium 9.2 (8.5-10.1) mg/dl Total Bilirubin 0.4 (0.2-1) mg/dl AST 25 (15-37) U/L ALT 56 (12-78) U/L Alkaline Phosphatase 70 (45-117) U/L Total Creatine Kinase 157 (39-308) U/L Total Protein 7.4 (6.4-8.2) gm/dl Albumin 3.7 (3.4-5.0) gm/dl Globulin 3.7 (2.5-4.0) gm/dl Albumin/Globulin Ratio 1.0 (0.9-2) Urine Color Urine Appearance (Clear) Urine pH (4.5-7.5) Ur Specific [place] (1.000-1.030) Urine Protein (Negative) Urine Glucose (UA) (Negative) Urine Ketones (Negative) Urine Blood (Negative) Urine Nitrite (Negative) Urine Bilirubin (Negative) Urine Urobilinogen (Negative) Ur Leukocyte Esterase (Negative) COVID-19 Eval Order SARS-CoV-2 (PCR) (Negative) Blood Type B Positive Antibody Screen NEGATIVE 03/04/21 03/04/21 03/04/21 Range/Units 20:04 20:04 20:56 WBC (4.8-10.8) K/uL RBC (4.7-6.1) M/uL Hgb (14.0-18.0) g/dL Hct (42-52) % MCV (80-100) fL MCH (25-34) pg MCHC (32-36) g/dL RDW Std Deviation (36.4-46.3) fL RDW Coeff of Monae (11.5-14.5) % Plt Count (130-400) K/uL MPV (7.4-10.4) fL Immature Gran % (Auto) % Neut % (Auto) % Lymph % (Auto) % [place] % (Auto) % Eos % (Auto) % Baso % (Auto) % Neut # (Auto) (1.4-6.5) K/uL Lymph # (Auto) (1.2-3.4) K/uL [place] # (Auto) (0.11-0.59) K/uL Eos # (Auto) (0-0.5) K/uL Baso # (Auto) (0-0.2) K/uL Immature Gran # (Auto) (0.00-0.02) K/uL Sodium (136-145) mmol/L Potassium (3.5-5.1) mmol/L Chloride (98-107) mmol/L Carbon Dioxide (21-32) mmol/L Anion Gap (3-11) BUN (7-18) mg/dl Creatinine (0.6-1.4) mg/dl Est Cr Clr Drug Dosing ml/min Est GFR ( Amer) ml/min Est GFR (Non-Af Amer) ml/min BUN/Creatinine Ratio (10-20) Glucose (70-99) mg/dl Calcium (8.5-10.1) mg/dl Total Bilirubin (0.2-1) mg/dl AST (15-37) U/L ALT (12-78) U/L Alkaline Phosphatase (45-117) U/L Total Creatine Kinase (39-308) U/L Total Protein (6.4-8.2) gm/dl Albumin (3.4-5.0) gm/dl Globulin (2.5-4.0) gm/dl Albumin/Globulin Ratio (0.9-2) Urine Color Yellow Urine Appearance Clear (Clear) Urine pH 5.5 (4.5-7.5) Ur Specific [place] 1.013 (1.000-1.030) Urine Protein Negative (Negative) Urine Glucose (UA) 2+ H (Negative) Urine Ketones Trace H (Negative) Urine Blood Negative (Negative) Urine Nitrite Negative (Negative) Urine Bilirubin Negative (Negative) Urine Urobilinogen Negative (Negative) Ur Leukocyte Esterase Negative (Negative) COVID-19 Eval Order Covid19 at [facility] SARS-CoV-2 (PCR) NEGATIVE (Negative) Blood Type Antibody Screen Administered Medications Hydromorphone HCl (Hydromorphone Inj 0.5 Mg/0.5 Ml Syr) 0.5 mg IV Q30M PRN PRN Reason: Pain Stop: 03/18/21 21:03 Last Admin: 03/04/21 21:08 Dose: 0.5 mg Documented by: [id number] Discontinued Medications Epinephrine HCl (Epinephrine Inj 1 Mg/Ml Amp) Confirm Administered Dose 1 mg .ROUTE .STK-MED ONE Stop: 03/04/21 21:31 Last Admin: 03/04/21 22:35 Dose: 0.15 mg Documented by: [id number] Gentamicin Sulfate (Gentamicin Sulfate 40 Mg/Ml 2 Ml Vial) Confirm Administered Dose 160 mg .ROUTE .STK-MED ONE Stop: 03/04/21 22:16 Last Admin: 03/04/21 22:24 Dose: 120 mg Documented by: [id number] Hydromorphone HCl (Hydromorphone Inj 0.5 Mg/0.5 Ml Syr) 0.5 mg IV NOW STA Stop: 03/04/21 19:38 Last Admin: 03/04/21 19:52 Dose: 0.5 mg Documented by: [id number] Hydromorphone HCl (Hydromorphone Inj 0.5 Mg/0.5 Ml Syr) 0.5 mg IV NOW STA Stop: 03/04/21 20:08 Last Admin: 03/04/21 20:13 Dose: 0.5 mg Documented by: [id number] Cefazolin Sodium (Ancef 2000mg) 2,000 mg in 15 mls @ 3.75 mls/min IV NOW STA Stop: 03/04/21 19:39 Last Admin: 03/04/21 19:52 Dose: 3.75 mls/min Documented by: [id number] Sodium Chloride (Nss 1000ml) 1,000 mls @ 999 mls/hr IV .Q1H1M BJ Stop: 03/04/21 20:45 Last Infusion: 03/04/21 21:03 Dose: 0 mls/hr Documented by: [id number] Admin: 03/04/21 19:52 Dose: 999 mls/hr Documented by: [id number] Metronidazole (Flagyl) 500 mg in 100 mls @ 100 mls/hr IV NOW STA Stop: 03/04/21 21:11 Last Infusion: 03/04/21 21:29 Dose: 0 mls/hr Documented by: [id number] Admin: 03/04/21 20:24 Dose: 100 mls/hr Documented by: [id number] Ondansetron HCl (Ondansetron Inj 2 Mg/Ml 2 Ml Vial) 4 mg IV NOW STA Stop: 03/04/21 19:38 Last Admin: 03/04/21 19:52 Dose: 4 mg Documented by: [id number] Imaging Data Radiologist's Impression: Chest X-Ray 03/04/21 19:37 XR chest 1V portable HISTORY: trauma COMPARISON: None. FINDINGS: The lungs are clear. Cardiac silhouette is normal in size. No pleural effusions. No pneumothorax. Mild dextroscoliosis of the thoracic spine. IMPRESSION: No acute process. ACT 112: Negative or not required by law. Electronically signed by: Mega Flaherty M.D. 03/04/2021 8:15 PM Tibia/Fibula X-Ray 03/04/21 19:39 XR tibia fibula RT 2V CLINICAL HISTORY: trauma Comparison: None available at the time of this dictation. TECHNIQUE: 2 radiographic views of the right leg were obtained. FINDINGS: There is a spiral fracture of the distal tibial diaphysis and a comminuted fracture of the fibular diaphysis. There is apex anterior angulation. Visualized portions of the knee and ankle joint are unremarkable. Soft tissue swelling seen about the fracture site. IMPRESSION: Displaced fractures of the tibia and fibula with associated soft tissue swelling.. ACT 112: Negative or not required by law. Electronically signed by: Devan Ruano M.D. 03/04/2021 8:10 PM Foot X-Ray 03/04/21 19:40 RIGHT FOOT 2 VIEWS HISTORY: Right foot pain. trauma COMPARISON: None. FINDINGS: There is no fracture or dislocation. Soft tissues are unremarkable. No radiopaque foreign bodies. IMPRESSION: No fractures within the right foot. ACT 112: Negative or not required by law. Electronically signed by: Mega Flaherty M.D. 03/04/2021 8:13 PM Tibia/Fibula X-Ray 03/04/21 20:08 XR tibia fibula RT 2V CLINICAL HISTORY: post reduction Comparison: Comparison is made to tibia-fibula radiographs 03/04/2021 TECHNIQUE: 2 radiographic views of the right leg were obtained. FINDINGS: The leg is been placed in a cast limiting fine bony detail. There is interval partial reduction of the tibial and fibular fractures with remaining apex anterior angulation and less than one shaft width displacement. Joint spaces are well-preserved. Soft tissue swelling is seen about the leg. IMPRESSION: Interval casting with residual mild displacement and angulation of the tibial and fibular fractures. ACT 112: Negative or not required by law. Electronically signed by: Devan Ruano M.D. 03/04/2021 8:23 PM Discharge Plan Visit Data Chief Complaint: Ankle Pain Stated Complaint: R ANKLE FX ED Provider: Vera Real Discharge Problem: Open tibial fracture Patient Disposition: Admitted As Inpatient Discharge Instructions Interventions: ED Discharge Assessment Last Done: 03/04/21 21:38 Discharge Problem: Open tibial fracture Qualifiers: Encounter type: initial encounter Tibia location: shaft Open fracture type: open type I or II Fracture morphology: unspecified fracture morphology Laterality: right Qualified Code(s): S82.201B - Unspecified fracture of shaft of right tibia, initial encounter for open fracture type I or II
[2021-03-05] MEDS: BUPIVACAINE 0.5 % 5 MG/1 ML MPF 30ML VIAL ONE ×2 (00:28→00:31)
[2021-03-05] MEDS ORDERED: NEOSTIGMINE METHYLSULFATE 1 MG/ML 10ML VIAL ONE (00:38)
[2021-03-05] MEDS ORDERED: ONDANSETRON INJ 2 MG/ML 2 ML VIAL ONE (00:38)
[2021-03-05] MEDS ORDERED: PROPOFOL IV EMULSION 10 MG/ML 20 ML VIAL IV ONE (00:38)
[2021-03-05] MEDS ORDERED: KETOROLAC 30 MG/ML VIAL ONE (00:38)
[2021-03-05] MEDS ORDERED: SUCCINYLCHOLINE CHLORIDE 20 MG/ML 10 ML VIAL IV ONE (00:38)
[2021-03-05] MEDS ORDERED: ROCURONIUM BROMIDE 10 MG/ML 5 ML VIAL IV ONE (00:38)
[2021-03-05] MEDS ORDERED: GLYCOPYRROLATE 0.2 MG/ML VIAL ONE (00:38)
[2021-03-05] MEDS ORDERED: LIDOCAINE 2% 2 ML VIAL/AMP(20MG/ML) INFIL ONE (00:38)
--- NOTE | 2021-03-05 00:54 | Post Operative Brief Note ---
PG Immediate Post Op with CF Date of Surgery March 05, 2021 Pre & Post Diagnosis Operation Date: 03/04/21 21:00 Pre-Op Diagnosis: Right open tibial fracture Post-Op Diagnosis: Right open tibial fracture I identified the patient and participated in the time-out.: Yes Procedure Operation Date: 03/04/21 21:00 Actual Procedures p Intramedullary Nail Right Tibia(Right) - Jarod Ramirez MD s Irrigation and Debridement Right Tibia(Right) - Jarod Ramirez MD Surgeon Jarod Ramirez MD Manager [employer] PAULA Roman Estimated Blood Loss 100 Findings Consistent with Post-Op Diagnosis Fluids 1300 cc Anesthesia Type General Complications none Disposition Accompanied Patient To Recovery: No
[2021-03-05] MEDS: fentaNYL citrate 100 MCG/2 ML VIAL IV PRN ×2 (01:03→01:09)
--- NOTE | 2021-03-05 01:27 | Anesthesiology Progress Note ---
Date of Service March 05, 2021 Anesthesia Post Procedure Vital Signs Vital Signs: Temp Pulse Pulse Resp BP BP Pulse Ox 03/05/21 01:15 82 12 151/85 H 100 03/05/21 01:05 89 18 163/90 H 100 03/05/21 00:55 36.1 C L 129 H 17 149/113 H 99 03/04/21 21:30 106 H 19 147/87 H 96 03/04/21 21:00 100 H 14 134/57 L 97 03/04/21 20:30 94 H 18 147/82 H 97 03/04/21 20:00 89 17 156/77 H 95 03/04/21 19:39 90 20 98 03/04/21 19:30 36.8 C 93 H 20 134/90 97 Pain Intensity Right Lower Leg: Pain Intensity: 4 Transfer of Care Handoff Completed per policy Notes Mental Status: alert / awake / arousable Patient Amnestic to Procedure: Yes Nausea / Vomiting: adequately controlled Pain: adequately controlled Airway Patency, RR, SpO2: stable & adequate BP & HR: stable & adequate Hydration State: stable & adequate Anesthetic Complications: no major complications apparent
[2021-03-05] MEDS ORDERED: GLUCAGON FOR INJ 1 MG VIAL SQ PRN (01:41)
[2021-03-05] MEDS ORDERED: SODIUM CHLORIDE 0.9% 1000ML 1,000 ML IV SCH (01:41)
[2021-03-05] MEDS ORDERED: GLUCOSE 40% GEL 15 GM TUBE PO PRN (01:41)
[2021-03-05] MEDS ORDERED: METOCLOPRAMIDE HCL INJ 5 MG/ML 2 ML VIAL IV PRN (01:41)
[2021-03-05] MEDS ORDERED: PHARMACY GLYCEMIC MGMT CONSULT PRN (01:41)
[2021-03-05] MEDS ORDERED: HYDROmorphone INJ 0.5 MG/0.5 ML SYR IV PRN (01:41)
[2021-03-05] MEDS ORDERED: oxyCODONE HCL IR 5 MG TAB (IMMEDIATE RELEASE) PO PRN (01:41)
[2021-03-05] MEDS ORDERED: GLUCOSE 10 TABS/TUBE PO PRN (01:41)
[2021-03-05] MEDS ORDERED: NALOXONE HCL 0.4 MG/1 ML VIAL/CARP IV PRN (01:41)
[2021-03-05] MEDS ORDERED: ONDANSETRON INJ 2 MG/ML 2 ML VIAL IV PRN (01:41)
[2021-03-05] MEDS ORDERED: DEXTROSE 50% 50 ML SYRINGE IV PRN (01:41)
[2021-03-05] MEDS ORDERED: bisacodyL 10 MG SUPP PR PRN (01:41)
[2021-03-05] MEDS ORDERED: MAGNESIUM HYDROXIDE SUSP 30 ML UDC PO PRN (01:41)
[2021-03-05] MEDS ORDERED: diphenhydrAMINE Capsule 25 MG CAP PO PRN (01:41)
[2021-03-05] MEDS ORDERED: CARBOHYDRATES FOR HYPOGLYCEMIA PO PRN (01:41)
[2021-03-05] MEDS: HYDROmorphone INJ 0.5 MG/0.5 ML SYR IV PRN (01:54)
[2021-03-05] MEDS: KETOROLAC 30 MG/ML VIAL IV SCH ×3 (05:24→16:58)
[2021-03-05] MEDS: ceFAZolin 2000MG 2,000 MG/15 ML SYR IV SCH ×3 (05:24→21:09)
[2021-03-05] MEDS: ACETAMINOPHEN 500 MG TAB PO SCH ×3 (05:25→21:08)
--- NOTE | 2021-03-05 07:40 | Operative Report ---
Post Operative Report Pre & Post Diagnosis Operation Date: 03/04/21 21:00 Pre-Op Diagnosis: Right grade 1 open tibia/fibula fracture Post-Op Diagnosis: Right grade 1 open open tibia/fibula fracture with extension into the tibial plafond I identified the patient and participated in the time-out.: Yes Procedure Operation Date: 03/04/21 21:00 Actual Procedures p Intramedullary Nail Right Tibia(Right) - Jarod Ramirez MD s Irrigation and Debridement Right open tibia fracture - Jarod Ramirez MD Surgeon Jarod Ramirez MD Slate Splitting Supervisor PAULA Roman Estimated Blood Loss 100 Findings Consistent with Post-Op Diagnosis Fluids 1300 cc Specimens None Anesthesia Type General Complications none Disposition Accompanied Patient To Recovery: Yes Indications Patient is a 25-year-old male wood who sustained injury earlier in the day. He was stacking some tires up on a shelf and one of the large tires fell down and landed right on his right leg. Acute onset of pain and deformity. Is brought to emergency room where x-rays showed a grade 1 open tib-fib fracture. The patient was given IV antibiotics. His tetanus is up-to-date. Patient indicated for irrigation debridement and IM nailing of his tibia fracture. Description of Procedure Operative implants consist of: 1 Synthes 10 mm x 375 mm titanium tibial nail. 2. 5.0 mm interlocking screws x4. 3. 10 mm end cap. 4. 4.0 cannulated screws x2 both short thread 1 of 42 mm length 146 mm length. The patient was taken the operating, identified, and placed on the operating table supine position but a contractors were properly padded. Patient received IV antibiotics in the ER. He got an additional 2 g of Ancef and we also gave him 120 mg of gentamicin. A general anesthetic was implemented. A right thigh tourniquet was then placed. The right lower extremity in the splint was removed. We then scrubbed the leg extensively with a Hibiclens. This wound was just a very small puncture wound less than 3mm. The right leg was then prepped and draped in usual sterile fashion. Attention was first drawn to the irrigation debridement. The small wound was saucerized and the incision was extended proximally and distally about 2 cm to expose the bone ends. I irrigated this extensively with 3 L of pulsatile lavage solution. Once this was complete the wound was covered. The drapes were taken down and the entire right lower extremity was then scrubbed again with ChloraPrep and then draped in the usual sterile fashion. Attention drawn to the IM nailing. Longitudinal incision was made over the medial aspect of the patella tendon from the inferior pole patella to the tibial tubercle. Sharp dissection got through subcutaneous tissue down to the extensor mechanism. A medial parapatellar arthrotomy incision was made. Some of the fat pad was removed. I wire was then placed on the anterior crest of the tibia and the line with the IM canal. This is advanced down the IM canal under fluoroscopic guidance. We then overreamed this with the a reamer. A guidewire was removed and the a ball-tipped guidewire was then placed down the IM canal. The fracture was reduced and the wire was current placed across the fracture site. This was verified fluoroscopically. We measured for nail length and 335 mm nail was selected. We then initially reamed over the nail with an 8 and half millimeter reamer followed by a 9/2, 10 and half, 11 and 11 and half millimeter reamer. We did get some cortical chatter so we selected a 10 mm nail. The 10 mm nail was then placed over the IM guidewire and tapped into position. We did countersink this in order to get it is best approach as distally as possible. The fracture reduced nicely. We took great care to set appropriate rotation as well. Attention to our proximal interlocking. The guidewire was removed. The proximal aiming arm was attached. The 2 proximal interlocking screws were placed after making stab incisions in the routine fashion. The aiming arm was then removed. The 10mm end cap was then placed. Attention toward distal interlocking. Perfect circles were obtained distally. Stab incisions were made and the 2 distal interlocking screws were placed in the typical fashion. Upon placing the screws we did notice there was a fracture into the posterior aspect of the tibial plateau likely an extension from above. I then placed 2 guidewires from anterior to posterior across the fracture site and then placed to partially- threaded short threaded cannulated screws. This did compress the fracture and reduced it nicely. Some final x-rays were obtained. Attention drawn toward closing. All wounds were irrigated with extensive amounts of pulsatile lavage solution. The medial parapatellar arthrotomy was closed with 0 Vicryl suture in [id number] fashion. Subcutaneous tissues were closed with 2 Dexon suture in a buried interrupted fashion. The remainder of the incisions were then closed with 3-0 nylon suture in a simple fashion. The leg was then cleaned and dried a sterile dressing was Xeroform, 4 x 4's, sterile cast padding, several ABD pads, and a posterior and stirrup splint were applied. The patient then brought out of general anesthesia and transferred to the recovery room in stable condition. Patient tolerated procedure well and there were no complications. Raymond Roman, physician assistant federal public defender, was present for the entire procedure. His assistance was required for proper patient positioning, prepping and draping, surgical exposure, placement of the hardware and implants, closure of the wound, and placement of the sterile bandage. I attest to the content of the Intraoperative Record and any orders documented therein. Any exceptions are noted below.
--- NOTE | 2021-03-05 07:53 | Electrocardiogram Report ---
Test Reason : Blood Pressure : / mmHG Vent. Rate : 089 BPM Atrial Rate : 089 BPM P-R Int : 148 ms QRS Dur : 106 ms QT Int : 346 ms P-R-T Axes : 060 077 052 degrees QTc Int : 420 ms Normal sinus rhythm Incomplete right bundle branch block Borderline ECG No previous ECGs available Confirmed by Dontae Carter ([id number]) on 03/05/2021 7:53:07 AM Referred By: REFERRED SELF Confirmed By:Abraham Carter
--- NOTE | 2021-03-05 08:39 | Fluoroscopy Report ---
FL tibia/fibula RT 2V CLINICAL HISTORY: RT ORIF TIB/FIB TECHNIQUE: 6 views were obtained with the C-arm in the OR with the above procedure. Total fluoroscopy time was 90.6 seconds. Total skin dose was 3.59 mGy. Comparison: None available at the time of this dictation. FINDINGS/IMPRESSION: Interval placement of intramedullary stuart in the tibia. Fractures of the tibia an d fibula are in near anatomic alignment. Please correlate with intraoperative fluoroscopy and operative report. ACT 112: Negative or not required by law. Electronically signed by: Devan Ruano M.D. 03/05/2021 8:38 AM
[2021-03-05] MEDS ORDERED: INSULIN GLARGINE SOLOSTAR 100 UNITS/ML 3 ML PEN SQ SCH ×2 (09:00)
[2021-03-05] MEDS: INSULIN ASPART 100 UNITS/ML 3 ML PEN SC SCH ×4 (09:01→21:13)
[2021-03-05] MEDS: TAPENTADOL HCL ER 50 MG TABCR PO SCH ×2 (09:08→21:08)
[2021-03-05] MEDS: MULTIVITAMIN TAB PO SCH (09:08)
[2021-03-05] MEDS: DOCUSATE SODIUM 100 MG CAP PO SCH ×2 (09:08→21:09)
[2021-03-05] MEDS: ASPIRIN 81 MG ECTAB PO SCH ×2 (09:09→21:09)
--- NOTE | 2021-03-05 09:45 | Progress Notes ---
DATE OF SERVICE: 03/05/2021 SUBJECTIVE: A 25-year-old gentleman postoperative day 1 from I and D and IM nailing of a grade I ope n tib-fib fracture. He is doing much better this morning. Pain is improved. He had a reasonably go od night. No new complaints. No chest pain or shortness of breath. Not feeling dizzy or lightheade d. OBJECTIVE: VITAL SIGNS: Temperature is 36.8. Vital signs are stable. PHYSICAL EXAMINATION: GENERAL: Shows a pleasant 25-year-old male. He is sitting up in bed and looks quite comfortable. LUNGS: Clear to auscultation. HEART: Regular rate and rhythm. ABDOMEN: Soft, nontender, nondistended. EXTREMITIES: Grossly neurovascularly intact except as follows: Examination of the right leg reveals the dressing to be clean, dry and intact. There is no drainage. He can dorsiflex and plantarflex h is toes without any real significant pain. He reports just a little bit of tingling sensation. Sens ory exam is intact to light touch. He has got brisk refill. ASSESSMENT: A 25-year-old male, diabetic, postoperative day 1 from incision and drainage of a grade I open tibiofibular fracture and intramedullary nailing. He is doing pretty well. Pain is controlle d. No signs of compartment issues. PLAN: We are going to keep him in the hospital today and give him IV antibiotics for 24-48 hours. L ikely discharge tomorrow. We will start therapy. DVT prophylaxis includes thigh-high TEDs, SCDs, an d aspirin twice a day for the next 4 to 6 weeks. Job ID: [id number]
--- NOTE | 2021-03-05 11:48 | Pharmacy Report ---
Pharmacy Glycemic Short Note 2 - Date of Service March 05, 2021 - Glycemic Short BSG Results (Last 24 hours): 03/04/21 03/05/21 03/05/21 19:46 00:58 02:04 Glucose 208 H POC Glucose 128 H 172 H 03/05/21 08:29 Glucose POC Glucose 148 H OUTPATIENT ANTIDIABETIC REGIMEN: * Basaglar 33 units SQ daily * Novolog ACHS * A1c pending ASSESSMENT: * Van is a 25 yo male POD # 1 s/p tib-fib fracture repair * Fasting BSG of 148 mg/dL is above goal. * Patient was initially ordered to receive 30 units of Lantus (~10% reduction in home dose), however he requested his full home dose. * Will utilize Novolog CF and CR based on anticipated need of ~66 units of insulin per day PLAN FOR INPATIENT GLYCEMIC CONTROL: * Basal insulin * Lantus 33 units SQ qAM * Bolus insulin * NovoLog per scale ACHS or Q6hrs while NPO * Goal Range: Low 120 mg/dL - High 150 mg/dL * Correction Factor: 25 mg/dL/unit * Nutritional / Prandial insulin per carb ratio of 1 unit per 8 grams CHO consumed PLAN FOR DISCHARGE: * A1c pending
[2021-03-05] MEDS ORDERED: SENNA 8.6 MG TAB PO SCH (21:00)
[2021-03-06] MEDS: KETOROLAC 30 MG/ML VIAL IV SCH ×3 (00:03→11:38)
[2021-03-06] MEDS: ceFAZolin 2000MG 2,000 MG/15 ML SYR IV SCH (05:29)
[2021-03-06] MEDS: ACETAMINOPHEN 500 MG TAB PO SCH (05:29)
--- NOTE | 2021-03-06 08:07 | Progress Notes ---
DATE OF SERVICE: 03/06/2021 SUBJECTIVE: A 25-year-old gentleman postoperative day 2 from I and D of a grade I open tib-fib fract ure and IM nailing. He is doing well. Some pain, but controlled. Really refusing to take much narc otic pain medicines. No chest pain or shortness of breath. No new complaints. OBJECTIVE: VITAL SIGNS: Temperature 36.7. Vital signs are stable. PHYSICAL EXAMINATION: GENERAL: Shows a pleasant 25-year-old male. He is lying in bed, looks comfortable. EXTREMITIES: Examination of the right leg reveals the dressing to be clean, dry and intact. There i s no drainage. He can dorsiflex and plantarflex his toes without much pain. Sensory exam is intact to light touch. Brisk refill. ASSESSMENT: A 25-year-old gentleman postoperative day 2 from I and D of an open fracture and intrame dullary nailing. He is doing well. His pain is controlled. He is neurologically intact. PLAN: 1. DVT prophylaxis includes thigh-high TEDs, SCDs, and aspirin twice a day. 2. PT/OT. He is nonweightbearing on the right leg for 2 weeks. 3. Antibiotics. He has gotten over 24 hours of postoperative antibiotics. 4. Disposition: Plan to discharge to home later today. Job ID: [id number]
[2021-03-06] MEDS: MULTIVITAMIN TAB PO SCH (08:26)
[2021-03-06] MEDS: ASPIRIN 81 MG ECTAB PO SCH (08:26)
[2021-03-06] MEDS: DOCUSATE SODIUM 100 MG CAP PO SCH (08:26)
[2021-03-06] MEDS: TAPENTADOL HCL ER 50 MG TABCR PO SCH (08:26)
[2021-03-06] MEDS: INSULIN ASPART 100 UNITS/ML 3 ML PEN SC SCH ×2 (08:27→12:44)
[2021-03-06 08:40] LABS: Estimated Average Glucose 163 mg/dl; Hemoglobin A1C 7.3 % (4.5-5.6)
[2021-03-06] MEDS ORDERED: INSULIN GLARGINE SOLOSTAR 100 UNITS/ML 3 ML PEN SQ SCH (09:00)
--- NOTE | 2021-03-10 11:11 | Discharge Summary ---
Date of Service March 10, 2021 Discharge Data Consultations 03/04/21 21:05 ED Decision to Admit Stat Procedures Performed Operation Date: 03/04/21 21:00 Actual Procedures p Intramedullary Nail Right Tibia(Right) - Jarod Ramirez MD s Irrigation and Debridement Right Tibia(Right) - Jarod Ramirez MD Hospital Course (1) Open tibial fracture: This is a 25 year old patient admitted on 03/04/21 with an open tib/fib fracture and underwent I & D/IM nailing of the tibia fracture. He tolerated the procedure well and there were no complications. Transferred to the PACU post op and later to the orthopedic floor for further care. He was given ancef for antibiotic prophylaxis. He was also given gentamycin at the time of surgery. He was given UBALDO stockings, SCDs, and aspirin for DVT prophylaxis. Hemoglobin, hematocrit, and vital signs were monitored during his hospital stay and remained stable. Did not require any blood transfusions. There were no complications during his hospital stay. By post op day #2 the patient was tolerating a diabetic diet, pain was reasonably controlled with oral pain medicine, and he was participating in physical therapy. On post op day #2 the patient was discharged home. He was given printed discharge instructions including prescriptions for extra strength tylenol, aspirin, and oxycodone. Non weight bearing right lower extremity. Follow up approximately 2 weeks post op or sooner if there are problems or concerns. Coding Level of Care Code None Diagnoses Open tibial fracture S82.201B Encounter type: initial encounter Fracture morphology: unspecified fracture morphology Laterality: right Open fracture type: open type I or II Tibia location: shaft
== END 2021-03-06 13:07 | disposition home or self-care (01) | DRG 494 ==
LOC: ED 19:28 → ASU 21:38 → 3E 03-05 01:01